=== PATIENT | male | born 1955 | race Caucasian/White ===

== ENCOUNTER 2017-09-26 08:25 | Emergency (ER) | payer MEDICARE, OTHER ==
[~2017-09-26] VITALS: Ht 187.9 cm; Wt 108.9 kg
[~2017-09-26 08:25] MED LIST: AMLODIPINE10 MG PO; CILOSTAZOL100 MG PO; COUMADIN5 MG PO; K + POTASSIUM20 MEQ PO; K-DUR 1010 MEQ PO; LIPITOR20 MG PO; LOPRESSOR25 MG PO; PLAVIX75 MG PO; ZITHROMAX Z PA250 MG PO
[2017-09-26] MEDS ORDERED: KEFLEX500 M1 PO ×2 (09:43→09:55)
[2017-09-26] MEDS ORDERED: TYLENOL325 M1 PO (09:56)
== END 2017-09-26 10:11 | disposition home or self-care (01) ==
LOC: ED 08:25
DX: S61.212A Laceration without foreign body of right middle finger without damage to nail, initial encounter (principal); Z79.899 Other long term (current) drug therapy; Z79.01 Long term (current) use of anticoagulants; Z86.73 Personal history of transient ischemic attack (TIA), and cerebral infarction without residual deficits; W23.0XXA Caught, crushed, jammed, or pinched between moving objects, initial encounter; Y93.89 Activity, other specified; Y92.098 Other place in other non-institutional residence as the place of occurrence of the external cause; Y99.9 Unspecified external cause status

== ENCOUNTER 2018-03-27 08:58 | Emergency (ER) | payer MEDICARE, OTHER ==
[~2018-03-27] VITALS: Ht 187.9 cm; Wt 106.6 kg
[~2018-03-27 08:58] MED LIST changes: +KEFLEX500 M1 PO; +TYLENOL325 M1 PO
[2018-03-27] MEDS ORDERED: CHLORZOXAZONE500 M2 PO (09:07)
[2018-03-27] MEDS ORDERED: NAPROSYN500 MG PO (09:07)
== END 2018-03-27 10:30 | disposition home or self-care (01) ==
LOC: ED 08:58
DX: M79.605 Pain in left leg (principal); M25.552 Pain in left hip; R03.0 Elevated blood-pressure reading, without diagnosis of hypertension; Z86.73 Personal history of transient ischemic attack (TIA), and cerebral infarction without residual deficits; Z79.01 Long term (current) use of anticoagulants; Z79.899 Other long term (current) drug therapy

== ENCOUNTER 2020-04-21 12:00 | Emergency (ER) | payer MEDICARE ==
[~2020-04-21] VITALS: Ht 187.9 cm; Wt 111.1 kg
[~2020-04-21 12:00] MED LIST changes: +CHLORZOXAZONE500 M2 PO; +NAPROSYN500 MG PO
[2020-04-21 13:21] LABS: BASO % 0.4 % (0.0-1.0); EOS # 0.2 10*3/uL (0.0-0.4); EOS % 1.4 % (1.0-4.0); HEMATOCRIT 42.4 % (42.0-52.0); LYMPH # 2.1 10*3/uL (1.3-4.4); LYMPH % 18.9 % (27.0-41.0); MEAN CELL VOLUME 90.6 fl (80.0-94.0); MEAN CORPUSCULAR HGB 29.5 pg (27.0-31.0); MEAN CORPUSCULAR HGB CONC 32.5 g/dl (33.0-37.0); MEAN PLATELET VOLUME 10.1 fl (9.6-12.3); MONO # 0.9 10*3/uL (0.1-1.0); MONO % 8.3 % (3.0-9.0); NEUT # 7.9 10*3/uL (2.3-7.9); NEUT % 70.6 % (47.0-73.0); PLATELET COUNT AUTOMATED 304 10*3/uL (130-400); RED BLOOD COUNT 4.68 10*6/uL (4.50-5.90); RED CELL DISTRI WIDTH 12.5 % (0-14.5); WHITE BLOOD COUNT 11.1 10*3/uL (4.8-10.8)
[2020-04-21 13:38] LABS: ALKALINE PHOSPHATASE 96 U/L (45-117); BUN 15 mg/dl (7-24); CHLORIDE 110 mmol/L (98-107); CREATININE 1.19 mg/dL (0.70-1.30); POTASSIUM 4.1 mmol/L (3.5-5.1); SGOT/AST 8 IU/L (3-35); SGPT/ALT 14 U/L (12-78); SODIUM 139 mmol/L (136-145); TOTAL PROTEIN 7.3 gm/dL (6.4-8.2); URIC ACID 4.5 mg/dL (3.5-7.2)
[2020-04-21] MEDS ORDERED: MEDROL DOSEPAK4 MG PO (15:05)
== END 2020-04-21 20:15 | disposition home or self-care (01) ==
LOC: ED 12:00
PROVIDERS: Physician Assistant
DX: M25.531 Pain in right wrist (principal); M79.89 Other specified soft tissue disorders; F17.200 Nicotine dependence, unspecified, uncomplicated; Z88.8 Allergy status to other drugs, medicaments and biological substances; Z79.899 Other long term (current) drug therapy

== ENCOUNTER 2020-10-03 18:57 | Emergency (ER) | payer MEDICARE ==
[~2020-10-03] VITALS: Ht 187.9 cm; Wt 97.5 kg
[~2020-10-03 18:57] MED LIST changes: +MEDROL DOSEPAK4 MG PO
[2020-10-03] MEDS ORDERED: ROBAXIN-750750 MG PO (19:16)
== END 2020-10-03 19:19 | disposition home or self-care (01) ==
LOC: ED 18:57
DX: M54.42 Lumbago with sciatica, left side (principal); Z79.899 Other long term (current) drug therapy; Z79.01 Long term (current) use of anticoagulants

== ENCOUNTER 2021-05-08 17:30 | Emergency (ER) | payer MEDICARE ==
[~2021-05-08] VITALS: Ht 187.9 cm; Wt 97.5 kg
[~2021-05-08 17:30] MED LIST changes: +ROBAXIN-750750 MG PO
[2021-05-08 18:18] LABS: HEMATOCRIT 41.8 % (42.0-52.0); MEAN CELL VOLUME 100.5 fl (80.0-94.0); MEAN CORPUSCULAR HGB 33.4 pg (27.0-31.0); MEAN CORPUSCULAR HGB CONC 33.3 g/dl (33.0-37.0); MEAN PLATELET VOLUME 10.4 fl (9.6-12.3); PLATELET COUNT AUTOMATED 236 10*3/uL (130-400); RED BLOOD COUNT 4.16 10*6/uL (4.50-5.90); RED CELL DISTRI WIDTH 14.6 % (0-14.5); WHITE BLOOD COUNT 7.7 10*3/uL (4.8-10.8)
[2021-05-08 18:35] LABS: BILIRUBIN Negative (Negative); BLOOD 2+ (Negative); CLARITY Clear (Clear); COLOR Yellow (Yellow); GLUCOSE Negative (Negative); KETONE Negative (Negative); LEUKO ESTERASE Negative (Negative); NITRITE Negative (Negative); PH 5.5 (4.5-8.0)
[2021-05-08 18:36] LABS: ALBUMIN 3.2 gm/dl (3.1-4.5); ALKALINE PHOSPHATASE 117 U/L (45-117); BUN 22 mg/dl (7-24); CHLORIDE 110 mmol/L (98-107); CREATININE 1.11 mg/dL (0.70-1.30); LIPASE 75 U/L (73-393); POTASSIUM 4.3 mmol/L (3.5-5.1); SGOT/AST 22 IU/L (3-35); SGPT/ALT 38 U/L (12-78); SODIUM 138 mmol/L (136-145); TOTAL PROTEIN 6.8 gm/dL (6.4-8.2)
[2021-05-08 18:37] LABS: TROPONIN I < 0.015 ng/ml (<0.045)
[2021-05-08 19:05] LABS: EPITHELIAL CELLS 0-2; RBC 31-40 rbc/hpf (0-2)
[2021-05-08 19:06] LABS: BACTERIA 1+; MUCOUS 1+
[2021-05-08 19:06] LABS: ATYPICAL LYMPHS 5 % (0-0); TOTAL CELLS COUNTED 100 #CELLS
[2021-05-08 19:07] LABS: BURR CELLS FEW; PLATELET SUFFICIENCY NORMAL (NORMAL)
== END 2021-05-09 01:26 | disposition home or self-care (01) ==
LOC: ED 17:30
PROVIDERS: Emergency Medicine
DX: K40.90 Unilateral inguinal hernia, without obstruction or gangrene, not specified as recurrent (principal); F17.200 Nicotine dependence, unspecified, uncomplicated; I10 Essential (primary) hypertension; Z79.899 Other long term (current) drug therapy